=== PATIENT | male | born 1980 | race Hispanic/Latino ===

== ENCOUNTER 2021-05-28 12:48 | Emergency (ER) | payer OTHER ==
[~2021-05-28] VITALS: Ht 180.3 cm; Wt 90.3 kg
[~2021-05-28 12:48] MED LIST: AUGMENTIN 875-1 EACH PO; PROAIR HFA INH8.5 GM IH
[2021-05-28] MEDS ORDERED: CASIRIVIMAB/IMDEVIMAB 10 ML in SODIUM CHLORIDE 0.9% 100 ML IV ONE (13:00)
== END 2021-05-28 14:46 | disposition home or self-care (01) ==
LOC: ER 12:51
DX: U07.1 COVID-19 (principal)
CPT/HCPCS: 71045; 99283; J7050